=== PATIENT | female | born 1980 | race Two or more races ===

== ENCOUNTER 2017-04-26 18:14 | Emergency (ER) | payer MEDICAID, OTHER ==
[~2017-04-26] VITALS: Ht 165.1 cm; Wt 94.0 kg
[2017-04-26] MEDS ORDERED: ONDANSETRON 2MG/ML, 2ML IVPush ONE (18:30)
[2017-04-26] MEDS ORDERED: ASPIRIN 81 MG TABLET CHEW PO ONE (18:30)
[2017-04-26] MEDS ORDERED: LORazepam 2 MG/ML, 1ML IVPush ONE (18:30)
[2017-04-26] MEDS ORDERED: SODIUM CHLORIDE FLUSH 10ML SYR IVF ONE (18:30)
[2017-04-26] MEDS ORDERED: ONDANSETRON 2MG/ML, 2ML ONE (18:34)
[2017-04-26] MEDS ORDERED: LORazepam 2 MG/ML, 1ML ONE (18:34)
[2017-04-26 18:57] LABS: BLOOD UREA NITROGEN 14 mg/dL (7-18)
[2017-04-26 19:02] LABS: IS PT STATUS REG ER OR PRE ER? YES
[2017-04-26 19:11] VITALS: BP 126/81
== END 2017-04-26 19:22 | disposition home or self-care (01) ==
LOC: ED 19:02
DX: R07.89 Other chest pain (principal); F41.1 Generalized anxiety disorder
CPT/HCPCS: 36415; 71010; 80048; 82040; 84484; 85025; 93005; 96374; 96375; 99285; J2060; J2405

== ENCOUNTER 2018-01-23 19:35 | Emergency (ER) | payer OTHER ==
[~2018-01-23] VITALS: Ht 165.1 cm; Wt 89.9 kg
[2018-01-23 20:56] LABS: BASOPHILS # (AUTO) 0.05 x10^3/uL (0-0.1); BASOPHILS % (AUTO) 1 % (0-1); EOSINOPHILS % (AUTO) 2 % (1-7); LYMPHOCYTES # (AUTO) 3.61 x10^3/uL (1-3.4); LYMPHOCYTES % (AUTO) 36 % (22-44); MD NO; MEAN CORPUSCULAR HEMOGLOBIN 29.4 pg (27.0-34.8); MEAN CORPUSCULAR HGB CONC 33.9 g/dL (32.4-35.8); MEAN CORPUSCULAR VOLUME 86.7 fL (80-100); MEAN PLATELET VOLUME 7.7 fL (7.4-10.4); MONOCYTES # (AUTO) 0.62 x10^3/uL (0.2-0.8); MONOCYTES % (AUTO) 6 % (2-9); NEUTROPHILS # (AUTO) 5.64 x10^3/uL (1.8-6.8); NEUTROPHILS % (AUTO) 56 % (42-75); PLATELET COUNT 338 x10^3/uL (130-400); RED BLOOD COUNT 4.99 x10^6/uL (3.82-5.3); RED CELL DISTRIBUTION WIDTH 13.1 % (9.6-15.2)
[2018-01-23 21:05] LABS: ALANINE AMINOTRANSFERASE 23 U/L (12-78); ALBUMIN 3.8 g/dL (3.4-5.0); ANION GAP 9 mmol/L (5-15); CALCIUM 8.4 mg/dL (8.5-10.1); CHLORIDE 110 mmol/L (98-107); CREATININE 0.69 mg/dL (0.55-1.02)
[2018-01-23 21:12] LABS: ALKALINE PHOSPHATASE 71 U/L (45-117); BILIRUBIN,TOTAL 0.3 mg/dL (0.2-1.0); TROPONIN I < 0.015 ng/mL (0.000-0.045)
[2018-01-23 22:42] VITALS: BP 119/74
[2018-01-23] MEDS ORDERED: MAALOX/HYOSCYAMINE/LIDOCAINE 45 ML BTL PO ONE (23:00)
[2018-01-23] MEDS ORDERED: FAMOTIDINE 20 MG TABLET PO ONE (23:00)
[2018-01-23] MEDS ORDERED: FAMOTIDINE 20 MG TABLET ONE (23:02)
[2018-01-23] MEDS ORDERED: MAALOX/HYOSCYAMINE/LIDOCAINE 45 ML BTL ONE (23:03)
== END 2018-01-24 01:30 | disposition home or self-care (01) ==
LOC: ED 23:59
DX: R06.09 Other forms of dyspnea (principal); R07.89 Other chest pain
CPT/HCPCS: 36415; 71046; 80053; 83690; 83880; 84484; 85025; 85379; 93005; 99285

== ENCOUNTER 2018-12-30 21:54 | Emergency (ER) | payer OTHER ==
[~2018-12-30] VITALS: Ht 165.1 cm; Wt 81.8 kg
[2018-12-30 22:00] VITALS: BP 153/86
[2018-12-30 23:29] LABS: BASOPHILS # (AUTO) 0.03 x10^3/uL (0-0.1); BASOPHILS % (AUTO) 0 % (0-1); EOSINOPHILS # (AUTO) 0.11 x10^3/uL (0-0.4); EOSINOPHILS % (AUTO) 1 % (1-7); LYMPHOCYTES # (AUTO) 2.45 x10^3/uL (1-3.4); LYMPHOCYTES % (AUTO) 29 % (22-44); MD NO; MEAN CORPUSCULAR HEMOGLOBIN 30.1 pg (27.0-34.8); MEAN CORPUSCULAR HGB CONC 34.3 g/dL (32.4-35.8); MEAN CORPUSCULAR VOLUME 87.6 fL (80-100); MONOCYTES # (AUTO) 0.39 x10^3/uL (0.2-0.8); MONOCYTES % (AUTO) 5 % (2-9); NEUTROPHILS # (AUTO) 5.42 x10^3/uL (1.8-6.8); NEUTROPHILS % (AUTO) 65 % (42-75); PLATELET COUNT 334 x10^3/uL (130-400); RED BLOOD COUNT 4.88 x10^6/uL (3.82-5.3); RED CELL DISTRIBUTION WIDTH 12.8 % (9.6-15.2)
[2018-12-30 23:45] LABS: ALANINE AMINOTRANSFERASE 22 U/L (12-78); ALBUMIN 4.1 g/dL (3.4-5.0); ANION GAP 6 mmol/L (5-15); CALCIUM 9.7 mg/dL (8.5-10.1); CHLORIDE 113 mmol/L (98-107); CREATININE 0.63 mg/dL (0.55-1.02); T4 (THYROXINE) 7.9 mcg/dL (4.8-13.9)
[2018-12-30 23:47] LABS: MICROSCOPIC NOT IND
[2018-12-30 23:49] LABS: CULTURE INDICATED? NO
[2018-12-30 23:50] LABS: ALKALINE PHOSPHATASE 60 U/L (45-117); BILIRUBIN,TOTAL 0.4 mg/dL (0.2-1.0); TOTAL PROTEIN 7.7 g/dL (6.4-8.2); TROPONIN I < 0.015 ng/mL (0.000-0.045)
[2018-12-31] MEDS ORDERED: ACETAMINOPHEN 325 MG TABLET ONE (00:11)
[2018-12-31] MEDS ORDERED: ACETAMINOPHEN 325 MG TABLET PO ONE (00:30)
[2018-12-31] MEDS ORDERED: MAALOX/HYOSCYAMINE/LIDOCAINE 45 ML BTL ONE (00:40)
[2018-12-31] MEDS ORDERED: MAALOX/HYOSCYAMINE/LIDOCAINE 45 ML BTL PO ONE (01:00)
== END 2018-12-31 01:16 | disposition home or self-care (01) ==
LOC: ED 23:04
DX: R42 Dizziness and giddiness (principal); R10.84 Generalized abdominal pain; R10.12 Left upper quadrant pain
CPT/HCPCS: 36415; 71045; 80053; 81003; 83690; 84436; 84443; 84484; 85025; 93005; 99284

== ENCOUNTER 2019-01-01 17:25 | Emergency (ER) | payer OTHER ==
[~2019-01-01] VITALS: Ht 165.1 cm; Wt 82.1 kg
[2019-01-01 19:25] LABS: BASOPHILS # (AUTO) 0.03 x10^3/uL (0-0.1); BASOPHILS % (AUTO) 0 % (0-1); EOSINOPHILS # (AUTO) 0.16 x10^3/uL (0-0.4); EOSINOPHILS % (AUTO) 2 % (1-7); LYMPHOCYTES # (AUTO) 3.38 x10^3/uL (1-3.4); LYMPHOCYTES % (AUTO) 39 % (22-44); MD NO; MEAN CORPUSCULAR HEMOGLOBIN 30.3 pg (27.0-34.8); MEAN CORPUSCULAR HGB CONC 33.9 g/dL (32.4-35.8); MEAN CORPUSCULAR VOLUME 89.3 fL (80-100); MONOCYTES # (AUTO) 0.35 x10^3/uL (0.2-0.8); MONOCYTES % (AUTO) 4 % (2-9); NEUTROPHILS # (AUTO) 4.77 x10^3/uL (1.8-6.8); NEUTROPHILS % (AUTO) 55 % (42-75); PLATELET COUNT 354 x10^3/uL (130-400); RED BLOOD COUNT 4.86 x10^6/uL (3.82-5.3); RED CELL DISTRIBUTION WIDTH 12.9 % (9.6-15.2)
[2019-01-01 19:35] LABS: ALANINE AMINOTRANSFERASE 21 U/L (12-78); ALBUMIN 4.1 g/dL (3.4-5.0); ANION GAP 3 mmol/L (5-15); CALCIUM 8.8 mg/dL (8.5-10.1); CHLORIDE 115 mmol/L (98-107)
[2019-01-01 19:38] LABS: ALKALINE PHOSPHATASE 67 U/L (45-117); BILIRUBIN,TOTAL 0.4 mg/dL (0.2-1.0); TOTAL PROTEIN 7.7 g/dL (6.4-8.2)
--- NOTE | 2019-01-01 20:19 | NUR ---
pt to room from lobby
--- NOTE | 2019-01-01 20:34 | NUR ---
PT C/O R FLANK FOR MORE THAN 1 WEEK, HAPPENS WHEN SHE EATS AND DRINKS ANYTHING OTHER THAN WATER. AA&O, NO DISTRESS NOTED, CALL LIGHT IN REACH
--- NOTE | 2019-01-01 20:57 | NUR ---
PT MEDICATED PER eMAR, PLACED ON BEDPAN URINE OBTAINED PT PAIN LEVEL 6/10
[2019-01-01] MEDS ORDERED: HYDROcodone/APAP 5/325 TABLET PO ONE (21:30)
--- NOTE | 2019-01-01 21:45 | NUR ---
URINE COLLECTED AND SENT
[2019-01-01 21:56] LABS: HCG UR SG 1.014 (1.003-1.030); MICROSCOPIC NOT IND
[2019-01-01 21:57] LABS: CULTURE INDICATED? NO
[2019-01-01] MEDS ORDERED: MAALOX/HYOSCYAMINE/LIDOCAINE 45 ML BTL PO ONE (22:00)
[2019-01-01] MEDS ORDERED: ACETAMINOPHEN 325 MG TABLET PO ONE (22:00)
[2019-01-01] MEDS ORDERED: HYDROcodone/APAP 5/325 TABLET ONE (22:06)
[2019-01-01] MEDS ORDERED: ACETAMINOPHEN 325 MG TABLET ONE (22:32)
[2019-01-01] MEDS ORDERED: MAALOX/HYOSCYAMINE/LIDOCAINE 45 ML BTL ONE (22:33)
--- NOTE | 2019-01-01 23:14 | NUR ---
PT C/O HANDS RED AND SWOLLEN AFTER GI COCKTAIL. REDNESS AD SOME SWLLING NOTED, NOTIFIED
[2019-01-01 23:38] VITALS: BP 131/82
== END 2019-01-01 23:40 | disposition home or self-care (01) ==
LOC: ED 20:41
DX: K80.50 Calculus of bile duct without cholangitis or cholecystitis without obstruction (principal); R10.11 Right upper quadrant pain
CPT/HCPCS: 36415; 76700; 80053; 81003; 81025; 83690; 85025; 99284

== ENCOUNTER 2019-01-30 21:48 | Emergency (ER) | payer MEDICAID, OTHER ==
[~2019-01-30] VITALS: Ht 165.1 cm; Wt 81.8 kg
[2019-01-30 21:54] VITALS: BP 125/80
[2019-01-30] MEDS ORDERED: KETOROLAC 30 MG/1 ML ONE (22:51)
[2019-01-30] MEDS ORDERED: METHOCARBAMOL 750 MG TABLET ONE (22:59)
[2019-01-30] MEDS ORDERED: KETOROLAC 30 MG/1 ML IM ONE (23:00)
[2019-01-30] MEDS ORDERED: METHOCARBAMOL 750 MG TABLET PO ONE (23:00)
[2019-01-30 23:17] LABS: BASOPHILS # (AUTO) 0.03 x10^3/uL (0-0.1); BASOPHILS % (AUTO) 0 % (0-1); EOSINOPHILS # (AUTO) 0.24 x10^3/uL (0-0.4); EOSINOPHILS % (AUTO) 3 % (1-7); LYMPHOCYTES # (AUTO) 3.38 x10^3/uL (1-3.4); LYMPHOCYTES % (AUTO) 39 % (22-44); MD NO; MEAN CORPUSCULAR HEMOGLOBIN 30.3 pg (27.0-34.8); MEAN CORPUSCULAR HGB CONC 34.6 g/dL (32.4-35.8); MEAN CORPUSCULAR VOLUME 87.7 fL (80-100); MEAN PLATELET VOLUME 7.7 fL (7.4-10.4); MONOCYTES # (AUTO) 0.56 x10^3/uL (0.2-0.8); MONOCYTES % (AUTO) 7 % (2-9); NEUTROPHILS # (AUTO) 4.48 x10^3/uL (1.8-6.8); NEUTROPHILS % (AUTO) 52 % (42-75); PLATELET COUNT 342 x10^3/uL (130-400); RED BLOOD COUNT 4.71 x10^6/uL (3.82-5.3); RED CELL DISTRIBUTION WIDTH 12.5 % (9.6-15.2)
[2019-01-30 23:28] LABS: ALANINE AMINOTRANSFERASE 27 U/L (12-78); ANION GAP 5 mmol/L (5-15); CALCIUM 8.8 mg/dL (8.5-10.1); CHLORIDE 110 mmol/L (98-107); CREATININE 0.84 mg/dL (0.55-1.02)
[2019-01-30 23:30] LABS: ALKALINE PHOSPHATASE 61 U/L (45-117); BILIRUBIN,TOTAL 0.8 mg/dL (0.2-1.0); TOTAL PROTEIN 7.8 g/dL (6.4-8.2)
[2019-01-30 23:32] LABS: HCG UR SG 1.007 (1.003-1.030); MICROSCOPIC NOT IND
[2019-01-30 23:33] LABS: CULTURE INDICATED? NO
== END 2019-01-30 23:57 | disposition home or self-care (01) ==
LOC: ED 23:51
DX: S39.012A Strain of muscle, fascia and tendon of lower back, initial encounter (principal); R39.15 Urgency of urination
CPT/HCPCS: 36415; 80053; 81003; 81025; 85025; 96372; 99283; J1885

== ENCOUNTER 2019-03-03 16:03 | Emergency (ER) | payer MEDICAID ==
[~2019-03-03] VITALS: Ht 162.6 cm; Wt 82.0 kg
--- NOTE | 2019-03-03 16:18 | NUR ---
38 YR OLD FEMALE ARRIVED VIA EMS, PER REPORT PT AT HOME DEPOT, PT WALKED OUTSIDE, BEGAN FEELING HOT, EARS ON FIRE, DIZZY. DENIES LOC. THEN BEGAN HAVING ABD PAIN "BURNING" EPIGASTRIC PAIN "GOING UP ESOPHAGUS". PT CURRENTLY DENIES TO. PT HAS UPPER AND LOWER ENDOSCOPY SCHEDULED FOR TUESDAY. PT ACCOMPANIED BY .
[2019-03-03] MEDS ORDERED: SUCR1TAB PO (16:28)
[2019-03-03] MEDS ORDERED: [UNRECOGNIZED DRUG - OTHER] PO (16:28)
[2019-03-03] MEDS ORDERED: OMEP40CA6 PO (16:28)
[2019-03-03 16:34] LABS: BASOPHILS # (AUTO) 0.03 x10^3/uL (0-0.1); BASOPHILS % (AUTO) 0 % (0-1); EOSINOPHILS # (AUTO) 0.12 x10^3/uL (0-0.4); EOSINOPHILS % (AUTO) 1 % (1-7); LYMPHOCYTES # (AUTO) 2.39 x10^3/uL (1-3.4); LYMPHOCYTES % (AUTO) 22 % (22-44); MD NO; MEAN CORPUSCULAR HGB CONC 34.2 g/dL (32.4-35.8); MEAN CORPUSCULAR VOLUME 87.8 fL (80-100); MONOCYTES # (AUTO) 0.39 x10^3/uL (0.2-0.8); MONOCYTES % (AUTO) 4 % (2-9); NEUTROPHILS # (AUTO) 8.17 x10^3/uL (1.8-6.8); NEUTROPHILS % (AUTO) 74 % (42-75); PLATELET COUNT 321 x10^3/uL (130-400); RED CELL DISTRIBUTION WIDTH 13.3 % (9.6-15.2)
--- NOTE | 2019-03-03 16:34 | NUR ---
ORTHOSTATIC V/S COMPLETED. PT TO CT VIA [facility]
[2019-03-03 16:39] LABS: ALANINE AMINOTRANSFERASE 22 U/L (12-78); ALBUMIN 3.7 g/dL (3.4-5.0); ANION GAP 8 mmol/L (5-15); CALCIUM 8.6 mg/dL (8.5-10.1); CHLORIDE 112 mmol/L (98-107); CREATININE 0.83 mg/dL (0.55-1.02)
[2019-03-03 16:43] LABS: ALKALINE PHOSPHATASE 66 U/L (45-117); BILIRUBIN,TOTAL 0.2 mg/dL (0.2-1.0); TOTAL PROTEIN 7.4 g/dL (6.4-8.2)
[2019-03-03 16:59] LABS: TROPONIN I < 0.015 ng/mL (0.000-0.045)
--- NOTE | 2019-03-03 17:11 | NUR ---
PT AMB TO BR, GAIT STEADY. DENIES DIZZINESS AT THIS TIME. "FEELS BETTER, MY LEGS JUST FEEL WEAK, BURNING IN ABD IS LITTLE LESS" CONT SR PER MONITOR. WAITING FOR TEST RESULTS, FURTHER DISPOSITION.
[2019-03-03 17:12] VITALS: BP_DIAS 80
--- NOTE | 2019-03-03 18:00 | NUR ---
PT DOZING INTERMITTENTLY, AROUSES EASILY. PT CONT IMPROVEMENT OF SYMPTOMS. IV DC'D WITH CANNULA INTACT. REVIEWED DC INSTRUCTIONS WITH PT. UNDERSTANDING VERBALIZED. PT LEFT AMB, GAIT STEADY WITH .
[2019-03-03 18:21] VITALS: BP_SYST 119
== END 2019-03-03 18:24 | disposition home or self-care (01) ==
LOC: ED 16:57
DX: R55 Syncope and collapse (principal)
CPT/HCPCS: 36415; 70450; 80053; 82533; 83690; 84443; 84484; 84703; 85025; 93005; 99284

== ENCOUNTER 2019-05-16 22:51 | Emergency (ER) | payer MEDICAID ==
[~2019-05-16] VITALS: Ht 165.1 cm; Wt 81.0 kg
[2019-05-16 23:48] VITALS: BP 116/87
== END 2019-05-17 00:51 | disposition home or self-care (01) ==
LOC: ED 23:27
DX: R42 Dizziness and giddiness (principal); M54.5 Low back pain; R11.0 Nausea
CPT/HCPCS: 36415; 71046; 80053; 81003; 81025; 83690; 84484; 85025; 93005; 99284

== ENCOUNTER 2019-06-09 19:02 | Emergency (ER) | payer MEDICAID ==
[~2019-06-09] VITALS: Ht 165.1 cm; Wt 79.6 kg
[2019-06-09 20:35] VITALS: BP 130/84
== END 2019-06-09 21:21 | disposition home or self-care (01) ==
LOC: ED 19:58
DX: F41.1 Generalized anxiety disorder (principal); R42 Dizziness and giddiness; R53.83 Other fatigue
CPT/HCPCS: 36415; 71045; 80053; 81003; 84439; 84443; 84703; 85025; 93005; 99284

== ENCOUNTER 2019-11-14 11:57 | Emergency (ER) | payer MEDICAID ==
[~2019-11-14] VITALS: Ht 165.1 cm; Wt 83.2 kg
[~2019-11-14 11:57] MED LIST: OMEP40CA42 PO; SUCR1TAB PO; [UNRECOGNIZED DRUG - OTHER] PO
[2019-11-14] MEDS ORDERED: METOCLOPRAMIDE 10MG TABLET ONE (12:57)
[2019-11-14] MEDS ORDERED: DIPHENHYDRAMINE 25 MG CAPSULE ONE (12:57)
[2019-11-14] MEDS ORDERED: KETOROLAC 60 MG/2 ML ONE (12:57)
[2019-11-14] MEDS ORDERED: METOCLOPRAMIDE 10MG TABLET PO ONE (13:00)
[2019-11-14] MEDS ORDERED: DIPHENHYDRAMINE 25 MG CAPSULE PO ONE (13:00)
[2019-11-14] MEDS ORDERED: KETOROLAC 30 MG/1 ML IM ONE (13:00)
--- NOTE | 2019-11-14 13:10 | NUR ---
THIS IS A 39 YO FEMALE WHO PRESENTS TO THE ER C/O TO X 5 DAYS. PT DENIES VISION CHANGES. PT REPORTS SLIGHT NAUSEA AND BODY ACHES. PT STATES "I HAD THE FLU". PT AO X 4. SKIN PWD. RESP EVEN AND UNLABORED. PERRLA. PT ABLE TO MOVE ALL EXTREMITIES W/O DIFFICULTY. CALL LIGHT WITHIN REACH. WILL CONT TO MONITOR PT.
--- NOTE | 2019-11-14 14:15 | NUR ---
PT REPORTS PAIN HAS DECREASED FROM 6/10 TO 3/10 AND IS TOLERABLE AT THIS TIME. PT AOX 4. SKIN PWD. RESP EVEN AND UNLABORED. PERRLA. PT ON CONT BP AND O2 MONITORS. CALL LIGHT WITHIN REACH. WILL CONT TO MONITOR PT.
[2019-11-14 14:53] VITALS: BP 121/72
== END 2019-11-14 14:56 | disposition home or self-care (01) ==
LOC: ED 14:05
DX: R51 Headache (principal); K21.9 Gastro-esophageal reflux disease without esophagitis
CPT/HCPCS: 70450; 93005; 96372; 99284; J1885; Q0163

== ENCOUNTER 2019-11-16 17:01 | Emergency (ER) | payer MEDICAID ==
--- NOTE | 2019-11-16 17:39 | NUR ---
TO ROOM FROM LOBBY.
[2019-11-16 18:15] LABS: BASOPHILS # (AUTO) 0.02 x10^3/uL (0-0.1); BASOPHILS % (AUTO) 0 % (0-1); EOSINOPHILS % (AUTO) 1 % (1-7); LYMPHOCYTES # (AUTO) 1.14 x10^3/uL (1-3.4); LYMPHOCYTES % (AUTO) 11 % (22-44); MD NO; MEAN CORPUSCULAR HGB CONC 34.1 g/dL (32.4-35.8); MEAN PLATELET VOLUME 7.5 fL (7.4-10.4); MONOCYTES # (AUTO) 0.35 x10^3/uL (0.2-0.8); MONOCYTES % (AUTO) 3 % (2-9); NEUTROPHILS # (AUTO) 9.36 x10^3/uL (1.8-6.8); NEUTROPHILS % (AUTO) 85 % (42-75); PLATELET COUNT 325 x10^3/uL (130-400); RED BLOOD COUNT 4.96 x10^6/uL (3.82-5.3); RED CELL DISTRIBUTION WIDTH 12.8 % (9.6-15.2)
[2019-11-16 18:26] LABS: ALANINE AMINOTRANSFERASE 18 U/L (12-78); ALBUMIN 3.4 g/dL (3.4-5.0); ANION GAP 5 mmol/L (5-15); CALCIUM 8.8 mg/dL (8.5-10.1); CHLORIDE 110 mmol/L (98-107); CREATININE 0.66 mg/dL (0.55-1.02)
[2019-11-16 18:31] LABS: ALKALINE PHOSPHATASE 49 U/L (45-117); BILIRUBIN,TOTAL 0.6 mg/dL (0.2-1.0); TOTAL PROTEIN 7.7 g/dL (6.4-8.2)
[2019-11-16 18:37] LABS: CULTURE INDICATED? YES; MICROSCOPIC INDICATED
[2019-11-16] MEDS ORDERED: KETOROLAC 30 MG/1 ML IM ONE (20:00)
[2019-11-16] MEDS ORDERED: ONDANSETRON ODT 4 MG PO ONE (20:00)
[2019-11-16] MEDS ORDERED: KETOROLAC 60 MG/2 ML ONE (20:04)
[2019-11-16] MEDS ORDERED: ONDANSETRON ODT 4 MG ONE (20:04)
[2019-11-16 20:27] VITALS: BP 119/71
== END 2019-11-16 21:18 | disposition home or self-care (01) ==
LOC: ED 18:20
DX: R10.11 Right upper quadrant pain (principal); R10.13 Epigastric pain; K21.9 Gastro-esophageal reflux disease without esophagitis
CPT/HCPCS: 36415; 74176; 80053; 81001; 83690; 84703; 85025; 87086; 96372; 99284; J1885; Q0162

== ENCOUNTER 2020-04-23 21:25 | Emergency (ER) | payer MEDICAID ==
[~2020-04-23] VITALS: Ht 165.1 cm; Wt 86.9 kg
--- NOTE | 2020-04-23 21:59 | NUR ---
Pt presents to ed c/o R flank painx3 days. Denies any further gi/gu s/s. States multiple kidney stones and uti's in the past and most recent uti treated in july w/ abx. States "this feels different though." Denies any fevers. States low probability of being . LMP 04/10/2020 per report. Moderate distress noted and increase in pain upon palpation. No bruising or swelling noted. Monitoring applied. Vss. Call light within reach. Ua sent to lab.
[2020-04-23 22:28] LABS: MICROSCOPIC NOT IND
[2020-04-23 22:31] LABS: BASOPHILS # (AUTO) 0.04 x10^3/uL (0-0.1); BASOPHILS % (AUTO) 1 % (0-1); EOSINOPHILS # (AUTO) 0.13 x10^3/uL (0-0.4); EOSINOPHILS % (AUTO) 2 % (1-7); LYMPHOCYTES # (AUTO) 2.96 x10^3/uL (1-3.4); LYMPHOCYTES % (AUTO) 35 % (22-44); MD NO; MEAN CORPUSCULAR HEMOGLOBIN 30.1 pg (27.0-34.8); MEAN CORPUSCULAR HGB CONC 33.8 g/dL (32.4-35.8); MEAN PLATELET VOLUME 7.7 fL (7.4-10.4); MONOCYTES # (AUTO) 0.55 x10^3/uL (0.2-0.8); MONOCYTES % (AUTO) 7 % (2-9); NEUTROPHILS # (AUTO) 4.85 x10^3/uL (1.8-6.8); NEUTROPHILS % (AUTO) 57 % (42-75); PLATELET COUNT 329 x10^3/uL (130-400); RED BLOOD COUNT 4.85 x10^6/uL (3.82-5.3)
[2020-04-23 22:41] LABS: ALANINE AMINOTRANSFERASE 57 U/L (12-78); ALBUMIN 3.8 g/dL (3.4-5.0); ANION GAP 8 mmol/L (5-15); CALCIUM 9.1 mg/dL (8.5-10.1); CHLORIDE 110 mmol/L (98-107); CREATININE 0.71 mg/dL (0.55-1.02)
[2020-04-23 22:46] LABS: ALKALINE PHOSPHATASE 51 U/L (45-117); BILIRUBIN,TOTAL 0.5 mg/dL (0.2-1.0)
--- NOTE | 2020-04-23 23:53 | NUR ---
REPORT OF PT FROM ILEANA ORTEGA AND ASSUMING CARE OF PT AT THIS TIME.
--- NOTE | 2020-04-24 00:01 | NUR ---
PT D/C WITH D/C SUMMARY AND SCRIPTS. ALL QUESTIONS ANSWERED. PT AMBULATES TO REGISTRATION DESK WITH STEADY GAIT FOR D/C HOME WITH SPOUSE. PT VSS. PT DENIES ANY OTHER NEEDS PERTAINING TO THIS VISIT.
[2020-04-24 00:02] VITALS: BP 115/76
== END 2020-04-24 00:04 | disposition home or self-care (01) ==
LOC: ED 22:07
DX: R10.84 Generalized abdominal pain (principal); R42 Dizziness and giddiness; R11.0 Nausea; K21.9 Gastro-esophageal reflux disease without esophagitis
CPT/HCPCS: 36415; 76700; 80053; 81003; 83690; 84703; 85025; 99284

== ENCOUNTER 2020-05-28 20:11 | Emergency (ER) | payer MEDICAID ==
[~2020-05-28] VITALS: Ht 165.1 cm; Wt 87.4 kg
--- NOTE | 2020-05-28 21:40 | NUR ---
PT RESTING IN GOWN IN [facility]. PT ATTACHED TO CARDIAC AND VS MONITORS. VSS AT THIS TIME. PT EDUCATED ON POC AND VERBALIZES UNDERSTANDING. CALL LIGHT IS WITHIN REACH.
[2020-05-28] MEDS ORDERED: MAALOX/HYOSCYAMINE/LIDOCAINE 45 ML BTL PO ONE (22:30)
[2020-05-28] MEDS ORDERED: LORazepam 1MG TABLET PO ONE (22:30)
[2020-05-28] MEDS ORDERED: FAMOTIDINE 20 MG TABLET PO ONE (22:30)
[2020-05-28] MEDS ORDERED: FAMOTIDINE 20 MG TABLET ONE (22:33)
[2020-05-28] MEDS ORDERED: MAALOX/HYOSCYAMINE/LIDOCAINE 45 ML BTL ONE (22:33)
[2020-05-28] MEDS ORDERED: LORazepam 1MG TABLET ONE (22:33)
--- NOTE | 2020-05-28 22:41 | NUR ---
pt medicated for anxiety and gi upset per dec. pt to ct via gurney at this time. vss and updated in emr.
[2020-05-28 22:43] LABS: BASOPHILS # (AUTO) 0.05 x10^3/uL (0-0.1); BASOPHILS % (AUTO) 1 % (0-1); EOSINOPHILS % (AUTO) 2 % (1-7); LYMPHOCYTES # (AUTO) 2.11 x10^3/uL (1-3.4); LYMPHOCYTES % (AUTO) 26 % (22-44); MD NO; MEAN CORPUSCULAR HEMOGLOBIN 30.4 pg (27.0-34.8); MEAN CORPUSCULAR HGB CONC 34.1 g/dL (32.4-35.8); MEAN CORPUSCULAR VOLUME 89.1 fL (80-100); MEAN PLATELET VOLUME 7.6 fL (7.4-10.4); MONOCYTES # (AUTO) 0.51 x10^3/uL (0.2-0.8); MONOCYTES % (AUTO) 6 % (2-9); NEUTROPHILS # (AUTO) 5.41 x10^3/uL (1.8-6.8); NEUTROPHILS % (AUTO) 66 % (42-75); PLATELET COUNT 334 x10^3/uL (130-400); RED BLOOD COUNT 4.91 x10^6/uL (3.82-5.3)
[2020-05-28 22:55] LABS: ALANINE AMINOTRANSFERASE 35 U/L (12-78); ALBUMIN 3.7 g/dL (3.4-5.0); ANION GAP 6 mmol/L (5-15); CALCIUM 8.6 mg/dL (8.5-10.1); CHLORIDE 112 mmol/L (98-107)
[2020-05-28 23:00] LABS: ALKALINE PHOSPHATASE 64 U/L (45-117); BILIRUBIN,TOTAL 0.3 mg/dL (0.2-1.0); CREATININE 0.84 mg/dL (0.55-1.02); FREE T4 (FREE THYROXINE) 1.02 ng/dL (0.76-1.46); TOTAL PROTEIN 7.8 g/dL (6.4-8.2); TROPONIN I < 0.015 ng/mL (0.000-0.045)
--- NOTE | 2020-05-28 23:54 | NUR ---
pt resting comfortably in [facility] at this time with spouse at bs. pt vss and updated in emr.
--- NOTE | 2020-05-29 00:44 | NUR ---
PT D/C WITH D/C SUMMARY AND SCRIPTS. ALL QUESTIONS ANSWERED. PT AMBULATES TO REGISTRATION DESK WITH STEADY GAIT WITH FOR D/C HOME. PT DENIES ANY OTHER NEEDS PERTAINING TO THIS VISIT.
[2020-05-29 00:57] VITALS: BP 102/56
== END 2020-05-29 00:59 | disposition home or self-care (01) ==
LOC: ED 23:30
DX: R42 Dizziness and giddiness (principal); K21.9 Gastro-esophageal reflux disease without esophagitis; R07.89 Other chest pain; F41.1 Generalized anxiety disorder; E23.6 Other disorders of pituitary gland
CPT/HCPCS: 36415; 70450; 80053; 83735; 84439; 84443; 84484; 85025; 93005; 99285

== ENCOUNTER 2020-06-19 20:49 | Emergency (ER) | payer MEDICAID ==
[~2020-06-19] VITALS: Ht 167.6 cm; Wt 86.1 kg
[2020-06-19 20:52] VITALS: BP 155/98
--- NOTE | 2020-06-19 21:08 | NUR ---
PT TO ED WITH DIZZINESS, CONSTIPATION, EPIGASTRIC AND RIGHT UPPER QUADRANT PAIN X3 WEEKS WORSE TODAY. HAS SEEN GI, WAS PRESCRIBED PEPCID X1 WEEK AGO. PT REPORTS INCREASED PAIN AFTER EATING SPICY FOOD TODAY. PT DENIES ANY OTHER MEDICAL C/O AT THIS TIME. ALL MONITORING IN PLACE, CALL LIGHT WITHIN REACH, ALL SAFETY MEASURES IN PLACE.
[2020-06-19] MEDS ORDERED: ONDANSETRON ODT 4 MG ONE (21:27)
[2020-06-19] MEDS ORDERED: MAALOX/HYOSCYAMINE/LIDOCAINE 45 ML BTL ONE (21:28)
[2020-06-19] MEDS ORDERED: MAALOX/HYOSCYAMINE/LIDOCAINE 45 ML BTL PO ONE (21:30)
[2020-06-19] MEDS ORDERED: ONDANSETRON ODT 4 MG PO ONE (21:30)
== END 2020-06-19 21:59 | disposition home or self-care (01) ==
LOC: ED 21:53
DX: K29.00 Acute gastritis without bleeding (principal); K59.00 Constipation, unspecified; K21.9 Gastro-esophageal reflux disease without esophagitis; R42 Dizziness and giddiness; R94.31 Abnormal electrocardiogram [ECG] [EKG]
CPT/HCPCS: 93005; 99283; Q0162

== ENCOUNTER 2020-07-15 17:53 | Emergency (ER) | payer MEDICAID ==
[~2020-07-15] VITALS: Ht 165.1 cm; Wt 84.4 kg
--- NOTE | 2020-07-15 18:07 | NUR ---
THIS IS A 40 YEAR OLD FEMALE WHO C/O OF FEELING FLUSHED & SOB STARTING TWO DAYS AGO, HOWEVER WORSENING TODAY WITH INTERMITTENT LEFT JAW, ARM, AND LEG NUMBNESS.
--- NOTE | 2020-07-15 18:25 | NUR ---
PT C/O OF SPINE PAIN. PT PLACED ON PRINCIPAL TECHNOLOGIST SINUS, CONTINOUS SP02 AND CYCLE VS.
[2020-07-15] MEDS ORDERED: LORazepam 1MG TABLET ONE (18:35)
[2020-07-15 18:58] LABS: ALBUMIN 3.7 g/dL (3.4-5.0); ANION GAP 7 mmol/L (5-15); CALCIUM 9.1 mg/dL (8.5-10.1); CHLORIDE 113 mmol/L (98-107); CREATININE 0.73 mg/dL (0.55-1.02)
[2020-07-15] MEDS ORDERED: LORazepam 1MG TABLET PO ONE (19:00)
[2020-07-15 19:05] LABS: TROPONIN I < 0.015 ng/mL (0.000-0.045)
[2020-07-15 19:06] VITALS: BP 131/72
--- NOTE | 2020-07-15 19:07 | NUR ---
PT RESTING IN [facility]. NAD. VSS
[2020-07-15 19:13] LABS: BASOPHILS # (AUTO) 0.05 x10^3/uL (0-0.1); BASOPHILS % (AUTO) 1 % (0-1); EOSINOPHILS # (AUTO) 0.12 x10^3/uL (0-0.4); EOSINOPHILS % (AUTO) 1 % (1-7); LYMPHOCYTES # (AUTO) 2.55 x10^3/uL (1-3.4); LYMPHOCYTES % (AUTO) 27 % (22-44); MD NO; MEAN CORPUSCULAR HEMOGLOBIN 30.1 pg (27.0-34.8); MEAN CORPUSCULAR HGB CONC 33.3 g/dL (32.4-35.8); MEAN CORPUSCULAR VOLUME 90.6 fL (80-100); MEAN PLATELET VOLUME 7.6 fL (7.4-10.4); MONOCYTES # (AUTO) 0.47 x10^3/uL (0.2-0.8); MONOCYTES % (AUTO) 5 % (2-9); NEUTROPHILS # (AUTO) 6.14 x10^3/uL (1.8-6.8); NEUTROPHILS % (AUTO) 66 % (42-75); PLATELET COUNT 343 x10^3/uL (130-400); RED BLOOD COUNT 4.79 x10^6/uL (3.82-5.3); RED CELL DISTRIBUTION WIDTH 12.2 % (9.6-15.2)
== END 2020-07-15 19:52 | disposition home or self-care (01) ==
LOC: ED 18:34
DX: R00.2 Palpitations (principal); F41.1 Generalized anxiety disorder; R06.4 Hyperventilation; R07.89 Other chest pain; R06.02 Shortness of breath; R00.0 Tachycardia, unspecified
CPT/HCPCS: 36415; 71045; 80048; 82040; 84436; 84443; 84484; 85025; 85379; 93005; 99285

== ENCOUNTER 2020-09-06 18:05 | Emergency (ER) | payer MEDICAID ==
[~2020-09-06] VITALS: Ht 165.1 cm; Wt 83.4 kg
[2020-09-06 19:03] LABS: BASOPHILS % (AUTO) 1 % (0-1); EOSINOPHILS % (AUTO) 0 % (1-7); LYMPHOCYTES % (AUTO) 16 % (22-44); MEAN CORPUSCULAR HEMOGLOBIN 29.2 pg (27.0-34.8); MEAN CORPUSCULAR HGB CONC 33.6 g/dL (32.4-35.8); MEAN PLATELET VOLUME 7.8 fL (7.4-10.4); MONOCYTES % (AUTO) 5 % (2-9); NEUTROPHILS % (AUTO) 78 % (42-75); PLATELET COUNT 357 x10^3/uL (130-400); RED BLOOD COUNT 5.13 x10^6/uL (3.82-5.3); RED CELL DISTRIBUTION WIDTH 12.8 % (9.6-15.2)
[2020-09-06 19:09] LABS: ALANINE AMINOTRANSFERASE 29 U/L (12-78); ALBUMIN 4.1 g/dL (3.4-5.0); ANION GAP 6 mmol/L (5-15); CHLORIDE 111 mmol/L (98-107); CREATININE 0.79 mg/dL (0.55-1.02); MD NO
[2020-09-06 19:13] LABS: ALKALINE PHOSPHATASE 69 U/L (45-117); BILIRUBIN,TOTAL 0.5 mg/dL (0.2-1.0); TOTAL PROTEIN 8.4 g/dL (6.4-8.2)
--- NOTE | 2020-09-06 20:13 | NUR ---
PT AMB TO RESTROOM FOR URINE SAMPLE, CLEAN CATCH EXPLAINED. VERBALIZED UNDERSTANDING
[2020-09-06 20:48] LABS: MICROSCOPIC NOT IND
[2020-09-06] MEDS ORDERED: SODIUM CHLORIDE 0.9% 1,000ML IVBOLUS ONE (21:30)
--- NOTE | 2020-09-06 21:37 | NUR ---
PT RESTING ON GUR[place], NAD, PROVIDED WATER FOR COMFORT, DENIES ADDITIONAL QUESTIONS OR NEEDS AT THIS ITME. MEDICATED PER DEC, PROVIDED ADDITIONAL BLANKETS, WCTM. WAITING FOR FLUIDS COMPLETION THEN RCK
--- NOTE | 2020-09-06 22:30 | NUR ---
LATE ENTRY D/T PT CARE: PT RESTING ON KATRINA WATSON, NO CHANGE IN CONDITION. WAITING FOR TEST RESULTS. WCTM
[2020-09-06 22:43] LABS: TROPONIN I < 0.015 ng/mL (0.000-0.045)
[2020-09-06 23:13] VITALS: BP 136/82
--- NOTE | 2020-09-06 23:15 | NUR ---
Patient given discharge instructions and they have confirmed that they understand the instructions. Patient ambulatory with steady gait. NAD, ADDITIONAL QUESTIONS ANSWERED APPROPRIATELY. NO PERSONAL BELONGINGS NOTED IN ROOM AFTER DC.
== END 2020-09-06 23:25 | disposition home or self-care (01) ==
LOC: ED 20:01
DX: R42 Dizziness and giddiness (principal); R07.2 Precordial pain; R94.31 Abnormal electrocardiogram [ECG] [EKG]; K21.9 Gastro-esophageal reflux disease without esophagitis
CPT/HCPCS: 36415; 80053; 81003; 84484; 84703; 85025; 93005; 96360; 99284; J7030

== ENCOUNTER 2020-09-22 14:38 | Emergency (ER) | payer MEDICAID ==
[~2020-09-22] VITALS: Ht 165.1 cm; Wt 81.9 kg
[2020-09-22 16:00] LABS: BASOPHILS % (AUTO) 0 % (0-1); EOSINOPHILS % (AUTO) 0 % (1-7); LYMPHOCYTES % (AUTO) 26 % (22-44); MEAN CORPUSCULAR HEMOGLOBIN 29.6 pg (27.0-34.8); MEAN CORPUSCULAR HGB CONC 33.9 g/dL (32.4-35.8); MONOCYTES % (AUTO) 7 % (2-9); NEUTROPHILS % (AUTO) 66 % (42-75); PLATELET COUNT 159 x10^3/uL (130-400); RED CELL DISTRIBUTION WIDTH 12.7 % (9.6-15.2)
[2020-09-22 16:08] LABS: ALANINE AMINOTRANSFERASE 71 U/L (12-78); ALBUMIN 3.8 g/dL (3.4-5.0); ANION GAP 10 mmol/L (5-15); CALCIUM 8.7 mg/dL (8.5-10.1); CHLORIDE 108 mmol/L (98-107); CREATININE 0.73 mg/dL (0.55-1.02)
[2020-09-22 16:13] LABS: ALKALINE PHOSPHATASE 82 U/L (45-117); BILIRUBIN,TOTAL 0.3 mg/dL (0.2-1.0); TOTAL PROTEIN 8.3 g/dL (6.4-8.2)
[2020-09-22 16:15] LABS: MD NO
[2020-09-22] MEDS ORDERED: CEFTRIAXONE PMX 1GM/50ML 50 ML ONE (18:26)
[2020-09-22] MEDS ORDERED: ONDANSETRON 2MG/ML, 2ML IVPush ONE (19:00)
[2020-09-22] MEDS ORDERED: MORPHINE SULFATE 4 MG/ML, 1ML IVPush PRN (19:00)
[2020-09-22] MEDS ORDERED: ONDANSETRON 2MG/ML, 2ML ONE (19:12)
[2020-09-22] MEDS ORDERED: MORPHINE SULFATE 4 MG/ML, 1ML ONE (19:12)
[2020-09-22 19:29] LABS: MICROSCOPIC NOT IND
[2020-09-22 21:15] VITALS: BP 103/61
--- NOTE | 2020-09-22 21:52 | NUR ---
Pt verbalized understanding of discharge instructions. VSS. Ambulatory at discharge.
== END 2020-09-22 21:54 | disposition home or self-care (01) ==
LOC: ED 18:32
DX: U07.1 COVID-19 (principal); R11.2 Nausea with vomiting, unspecified; E86.0 Dehydration; R10.13 Epigastric pain; R10.11 Right upper quadrant pain; R05 Cough; R50.9 Fever, unspecified; R00.0 Tachycardia, unspecified; Z87.442 Personal history of urinary calculi
CPT/HCPCS: 36415; 76700; 80053; 81003; 83690; 84703; 85025; 87635; 96374; 96375; 99284; J2270; J2405

== ENCOUNTER 2020-09-26 16:29 | Emergency (ER) | payer MEDICAID ==
[~2020-09-26] VITALS: Ht 165.1 cm; Wt 80.6 kg
--- NOTE | 2020-09-26 19:47 | NUR ---
CLEANING ASSOCIATE: PT WALKED BACK FROM LOBBY TO ROOM AT THIS TIME. STEADY UPON AMBULATION.
[2020-09-26 19:48] LABS: BASOPHILS % (AUTO) 0 % (0-1); EOSINOPHILS % (AUTO) 1 % (1-7); LYMPHOCYTES % (AUTO) 39 % (22-44); MEAN CORPUSCULAR HEMOGLOBIN 29.6 pg (27.0-34.8); MEAN CORPUSCULAR HGB CONC 34.6 g/dL (32.4-35.8); MEAN PLATELET VOLUME 7.6 fL (7.4-10.4); MONOCYTES % (AUTO) 11 % (2-9); NEUTROPHILS % (AUTO) 49 % (42-75); PLATELET COUNT 299 x10^3/uL (130-400); RED BLOOD COUNT 5.04 x10^6/uL (3.82-5.3); RED CELL DISTRIBUTION WIDTH 12.8 % (9.6-15.2)
[2020-09-26 19:49] LABS: MD NO
[2020-09-26 19:53] LABS: ANION GAP 6 mmol/L (5-15); CALCIUM 9.1 mg/dL (8.5-10.1); CHLORIDE 110 mmol/L (98-107); CREATININE 0.65 mg/dL (0.55-1.02)
--- NOTE | 2020-09-26 20:02 | NUR ---
ER PA WAS IN TO SEE PT.
[2020-09-26] MEDS ORDERED: DIAZEPAM 5 MG TABLET ONE (20:06)
--- NOTE | 2020-09-26 20:10 | NUR ---
PT MEDICATED PER ORDERS. UNDERSTANDS POC.
[2020-09-26] MEDS ORDERED: STOOL SOFTENER PO (20:15)
[2020-09-26] MEDS ORDERED: DIAZEPAM 5 MG TABLET PO ONE (20:30)
--- NOTE | 2020-09-26 21:29 | NUR ---
ER PA WAS IN TO ATTEMPT MANUAL DISIMPACTION WITH RN AT BS. NO STOOL IN RECTUM. PLAN FOR MEDICATION.
[2020-09-26] MEDS ORDERED: MAGNESIUM CITRATE 300ML ORAL SOL PO PRN (21:30)
[2020-09-26] MEDS ORDERED: MAGNESIUM CITRATE 300ML ORAL SOL ONE (21:54)
--- NOTE | 2020-09-26 22:05 | NUR ---
PT MEDICATED PER ORDERS. STATES SHE WANTS TO STAY IN THE ED FOR A LITTLE WHILE TO SEE IF IT WORKS AND SHE CAN HAVE A BM. REPORTED TO PHOEBE TEJEDA.
--- NOTE | 2020-09-26 22:33 | NUR ---
PT STATES SHE WANTS TO STAY IN ER FOR MAG CITRATE TO WORK.
[2020-09-26] MEDS ORDERED: PINK LADY ENEMA 490 ML BOTTLE PR ONE (23:00)
--- NOTE | 2020-09-26 23:00 | NUR ---
REPORT GIVEN TO LAURENCE TEJEDA
--- NOTE | 2020-09-27 00:04 | NUR ---
SHEILA RN: 2ND HALF OF EMEMA ADMINISTERED, PT TOLERATED WELL.
[2020-09-27 00:49] VITALS: BP 113/80
== END 2020-09-27 00:52 | disposition home or self-care (01) ==
LOC: ED 21:51
DX: U07.1 COVID-19 (principal); R10.84 Generalized abdominal pain; R19.7 Diarrhea, unspecified; K59.00 Constipation, unspecified; R11.0 Nausea; K21.9 Gastro-esophageal reflux disease without esophagitis
CPT/HCPCS: 36415; 74021; 80048; 85025; 99284

== ENCOUNTER 2020-10-21 22:22 | Emergency (ER) | payer MEDICAID ==
[~2020-10-21] VITALS: Ht 165.1 cm; Wt 78.6 kg
[~2020-10-21 22:22] MED LIST changes: +STOOL SOFTENER PO
[2020-10-21 23:26] LABS: BASOPHILS % (AUTO) 1 % (0-1); EOSINOPHILS % (AUTO) 1 % (1-7); LYMPHOCYTES % (AUTO) 23 % (22-44); MD NO; MEAN CORPUSCULAR HEMOGLOBIN 29.8 pg (27.0-34.8); MEAN CORPUSCULAR HGB CONC 34.1 g/dL (32.4-35.8); MEAN PLATELET VOLUME 8.1 fL (7.4-10.4); MONOCYTES % (AUTO) 6 % (2-9); NEUTROPHILS % (AUTO) 69 % (42-75); PLATELET COUNT 286 x10^3/uL (130-400); RED BLOOD COUNT 4.66 x10^6/uL (3.82-5.3); RED CELL DISTRIBUTION WIDTH 13.7 % (9.6-15.2)
[2020-10-21 23:34] LABS: ALANINE AMINOTRANSFERASE 25 U/L (12-78); ALBUMIN 3.8 g/dL (3.4-5.0); ANION GAP 10 mmol/L (5-15); CALCIUM 9.2 mg/dL (8.5-10.1); CHLORIDE 110 mmol/L (98-107); CREATININE 0.68 mg/dL (0.55-1.02)
[2020-10-21 23:39] LABS: ALKALINE PHOSPHATASE 61 U/L (45-117); BILIRUBIN,TOTAL 0.5 mg/dL (0.2-1.0); TOTAL PROTEIN 7.8 g/dL (6.4-8.2); TROPONIN I < 0.015 ng/mL (0.000-0.045)
[2020-10-22] MEDS ORDERED: LORazepam 1MG TABLET PO ONE
[2020-10-22] MEDS ORDERED: LORazepam 1MG TABLET ONE (00:03)
--- NOTE | 2020-10-22 00:16 | NUR ---
PT RESTING IN BED WITH FRIEND AT SIDE, PT MEDICATED PER MAR. PT ON MONITOR WITH PT VSS. PT URINE SENT TO LAB
[2020-10-22 00:30] LABS: HCG UR SG 1.016 (1.003-1.030); MICROSCOPIC NOT IND
[2020-10-22 00:42] LABS: AMPHETAMINE SCREEN, URINE Negative (Negative); BARBITURATE SCREEN, URINE Negative (Negative); BENZODIAZEPINE SCREEN, URINE Negative (Negative); CANNABINOID SCREEN, URINE Negative (Negative); COCAINE SCREEN, URINE Negative (Negative); METHADONE SCREEN, URINE Negative (Negative); OPIATE SCREEN, URINE Negative (Negative)
[2020-10-22 02:02] VITALS: BP 112/67
== END 2020-10-22 02:04 | disposition home or self-care (01) ==
LOC: ED 22:53
DX: R00.2 Palpitations (principal); F41.1 Generalized anxiety disorder; R00.0 Tachycardia, unspecified; K21.9 Gastro-esophageal reflux disease without esophagitis
CPT/HCPCS: 36415; 80053; 80307; 81003; 81025; 83690; 84484; 85025; 93005; 99284

== ENCOUNTER 2020-10-24 00:40 | Emergency (ER) | payer MEDICAID ==
[~2020-10-24] VITALS: Ht 165.1 cm; Wt 78.4 kg
--- NOTE | 2020-10-24 01:24 | NUR ---
PATIENT AMBULATED FROM TRIAGE AREA UNASSISTED, REPORT TO ISAEL TEJEDA.
[2020-10-24 01:29] LABS: BASOPHILS % (AUTO) 1 % (0-1); EOSINOPHILS % (AUTO) 2 % (1-7); LYMPHOCYTES % (AUTO) 38 % (22-44); MEAN CORPUSCULAR HEMOGLOBIN 30.2 pg (27.0-34.8); MEAN CORPUSCULAR HGB CONC 34.1 g/dL (32.4-35.8); MEAN PLATELET VOLUME 8.1 fL (7.4-10.4); MONOCYTES % (AUTO) 6 % (2-9); NEUTROPHILS % (AUTO) 53 % (42-75); PLATELET COUNT 306 x10^3/uL (130-400); RED BLOOD COUNT 4.76 x10^6/uL (3.82-5.3); RED CELL DISTRIBUTION WIDTH 13.4 % (9.6-15.2)
[2020-10-24 01:30] LABS: MD NO
[2020-10-24 02:03] LABS: ALBUMIN 4.2 g/dL (3.4-5.0); ANION GAP 7 mmol/L (5-15); CALCIUM 9.5 mg/dL (8.5-10.1); CHLORIDE 110 mmol/L (98-107); CREATININE 0.82 mg/dL (0.55-1.02)
[2020-10-24 02:13] LABS: TROPONIN I < 0.015 ng/mL (0.000-0.045)
[2020-10-24 03:27] VITALS: BP 116/75
== END 2020-10-24 03:29 | disposition home or self-care (01) ==
LOC: ED 03:01
DX: R07.89 Other chest pain (principal); R00.2 Palpitations; F41.1 Generalized anxiety disorder; R06.00 Dyspnea, unspecified; K21.9 Gastro-esophageal reflux disease without esophagitis
CPT/HCPCS: 36415; 80048; 82040; 83735; 84443; 84484; 85025; 93005; 99284

== ENCOUNTER 2020-10-29 16:41 | Emergency (ER) | payer MEDICAID ==
[~2020-10-29] VITALS: Ht 165.1 cm; Wt 76.6 kg
[2020-10-29] MEDS ORDERED: SODIUM CHLORIDE FLUSH 10ML SYR IVF ONE ×2 (17:30)
[2020-10-29] MEDS ORDERED: KETOROLAC 30 MG/1 ML IVPush ONE (17:30)
[2020-10-29] MEDS ORDERED: DIPHENHYDRAMINE 50 MG/ML, 1ML IVPush ONE (17:30)
[2020-10-29] MEDS ORDERED: METOCLOPRAMIDE 5 MG/ML, 2ML IVPush ONE (17:30)
[2020-10-29] MEDS ORDERED: METOCLOPRAMIDE 5 MG/ML, 2ML ONE (17:39)
[2020-10-29] MEDS ORDERED: DIPHENHYDRAMINE 50 MG/ML, 1ML ONE (17:39)
[2020-10-29] MEDS ORDERED: KETOROLAC 30 MG/1 ML ONE (17:39)
--- NOTE | 2020-10-29 17:49 | NUR ---
PT HAS CO MIGRAINE AND "HEART RACING". 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 DENIES CP. STATES SHE FEELS DIZZY AND FATIGUED.
[2020-10-29 18:02] LABS: BASOPHILS % (AUTO) 1 % (0-1); EOSINOPHILS % (AUTO) 0 % (1-7); LYMPHOCYTES % (AUTO) 19 % (22-44); MEAN CORPUSCULAR HEMOGLOBIN 30.1 pg (27.0-34.8); MONOCYTES % (AUTO) 5 % (2-9); NEUTROPHILS % (AUTO) 75 % (42-75); PLATELET COUNT 375 x10^3/uL (130-400); RED BLOOD COUNT 4.93 x10^6/uL (3.82-5.3); RED CELL DISTRIBUTION WIDTH 13.7 % (9.6-15.2)
[2020-10-29 18:03] LABS: MD NO
[2020-10-29 18:10] LABS: ALANINE AMINOTRANSFERASE 23 U/L (12-78); ALBUMIN 4.6 g/dL (3.4-5.0); ANION GAP 7 mmol/L (5-15); CALCIUM 9.7 mg/dL (8.5-10.1); CHLORIDE 110 mmol/L (98-107); CREATININE 0.69 mg/dL (0.55-1.02)
[2020-10-29 18:14] LABS: ALKALINE PHOSPHATASE 67 U/L (45-117); BILIRUBIN,TOTAL 0.5 mg/dL (0.2-1.0); TOTAL PROTEIN 8.7 g/dL (6.4-8.2)
[2020-10-29 18:20] LABS: MICROSCOPIC NOT IND
--- NOTE | 2020-10-29 18:50 | NUR ---
REPORT TO PRIETO
[2020-10-29 20:07] VITALS: BP 117/90
== END 2020-10-29 20:20 | disposition home or self-care (01) ==
LOC: ED 18:28
DX: R00.2 Palpitations (principal); R42 Dizziness and giddiness; R07.89 Other chest pain; R51.9 Headache, unspecified; K21.9 Gastro-esophageal reflux disease without esophagitis
CPT/HCPCS: 36415; 70450; 71045; 80053; 81003; 84443; 84703; 85025; 93005; 96374; 96375; 99285; J1200; J1885; J2765